=== PATIENT | female | born 1985 | race Caucasian/White ===

== ENCOUNTER 2021-03-27 16:41 | Emergency (ER) | payer BC, SELFPAY ==
[2021-03-27 16:47] VITALS: BP 132/94; PULSE 98; RESP 18; O2SAT 98
--- NOTE | 2021-03-27 17:04 | W.ED.GENAD ---
Discharge Plan Disposition Patient Disposition: HOME Condition: Improving Discharge Details Clinical Impression: Cellulitis of face Primary Care Provider: Grace Ho ED Provider: Marco Antonio Dasilva Home Meds and New Rx's Prescriptions: New amoxicillin-pot clavulanate 875-125 mg tablet 1 tab PO BID 10 Days Qty: 20 RF: 0 Continued spironolactone 100 mg tablet 100 mg PO BID RF: 0 clindamycin-benzoyl peroxide 1-5 % gel 1 applic TOPICAL DAILY RF: 0 liothyronine 5 mcg tablet 5 mcg PO DAILY RF: 0 hydroxyzine HCl 25 mg tablet 100 mg PO QHS RF: 0 zolpidem [Ambien] 5 mg tablet 5 mg PO QHS PRNRF: 0 albuterol sulfate [ProAir HFA] 90 mcg/actuation HFA aerosol inhaler 1 puff INHALATION PRN PRNRF: 0 sertraline 50 mg tablet 50 mg PO DAILY RF: 0 phentermine 37.5 mg capsule 37.5 mg PO DAILY RF: 0 bupropion HCl 300 mg tablet extended release 24 hr 300 mg PO DAILY RF: 0 Discontinued minocycline 100 mg capsule 100 mg PO DAILY PRNRF: 0 Discharge Instructions Instructions: Cellulitis (ED) Additional Instructions: Pap stop your current antibiotics. Begin Augmentin as prescribed twice daily. Take a [id number] probiotic once daily in the middle of the day while on this medication. Please follow-up with Dr. Rai in clinic for recheck if not improving in 5 to 7 days time. Return to the ER for any acute concerns. Medical Decision Making 35-year-old female who has intermittent acne that has recently flared up. She was placed on minocycline and now has trialed 2 to 3 days of doxycycline with minimal to no improvement. She does appear to have cellulitis and developing area of induration of the left lower face. Discussed with her options for treatment. We will place her on Augmentin for 10 days. She will take a probiotic with this. She will follow with primary care for recheck. She is stable for discharge home. HPI General Mode of arrival: ambulatory. Date/Time Provider Initiated Documentation: 03/27/21 16:43. Limitations to Documentation: no limitations. Information obtained by: patient. History of Present Illness 35 year old F presents to the emergency department with the chief complaint of Skin infection on face, described as moderate and similar to prior episodes, Quality is described as dull and constant, and is localized to the face. Patient reports no radiation. Patient started experiencing this day(s) and it has been constant. No relieving factors improve symptom(s), No exacerbating factors reported . Patient notes no other symptoms.; denies fever/chills, headaches and loss of appetite. Patient did receive the following treatments prior to arrival, other (Doxycycline) Related Data Home Medications Medication Instructions Recorded Confirmed albuterol sulfate [ProAir HFA] 1 puff INHALATION PRN PRN 03/27/21 03/27/21 amoxicillin-pot clavulanate 1 tab PO BID 10 Days #20 tab 03/27/21 bupropion HCl 300 mg PO DAILY 03/27/21 03/27/21 clindamycin-benzoyl peroxide 1 applic TOPICAL DAILY 03/27/21 03/27/21 hydroxyzine HCl 100 mg PO QHS 03/27/21 03/27/21 liothyronine 5 mcg PO DAILY 03/27/21 03/27/21 phentermine 37.5 mg PO DAILY 03/27/21 03/27/21 sertraline 50 mg PO DAILY 03/27/21 03/27/21 spironolactone 100 mg PO BID 03/27/21 03/27/21 zolpidem [Ambien] 5 mg PO QHS PRN 03/27/21 03/27/21 Previous Rx's Medication Instructions Recorded amoxicillin-pot clavulanate 1 tab PO BID 10 Days #20 tab 03/27/21 Allergies Allergy/AdvReac Type Severity Reaction Status Date / Time apixaban [From Eliquis] AdvReac Severe Other (See Unverified 03/27/21 16:52 Comment) General Stated Complaint: FacialProb BRADEN: 4 Review of Systems Narrative: No fever or vomiting. She is otherwise been well. Took a course of minocycline, now on doxycycline. COUNT INCLUDES THE [facility] Social History Smoking risk assessment performed?: No Exam Narrative Exam Narrative: GEN: awake, alert, oriented 3. Pleasant, well groomed, interactive. HEAD: Normocephalic, atraumatic ENT: Mucous membranes moist, oropharynx unremarkable, External ear exam unremarkable. Left lower face with areas of induration, mild erythema, tender to touch. No point fluctuance. EYES: PERRL, EOMI NECK: Full ROM, no AB, no menigismus CHEST/RESP: Nontender, clear to auscultation bilateral, no wheeze/rhonchi/rales CARDIOVASCULAR: RRR, no murmur, rub derek. 2+ Rad pulse bilateral Neuro: Grossly normal neurologic exam, conversant, interactive. Psych: Speech fluent, thoughts congruent, affect normal Course Vital Signs Vital signs: Vital Signs Pulse 98 H 03/27/21 16:47 Respiratory Rate 18 03/27/21 16:47 Blood Pressure 132/94 H 03/27/21 16:47 Pulse Oximetry 98 03/27/21 16:47 Pulse 98 H 03/27/21 16:47 Respiratory Rate 18 03/27/21 16:47 Blood Pressure 132/94 H 03/27/21 16:47 Blood Pressure Position Sitting 03/27/21 16:47 Pulse Oximetry 98 03/27/21 16:47 Oxygen Delivery Method Room Air 03/27/21 16:47 Oxygen Flow Rate 0 03/27/21 16:47 Pain Level 5 03/27/21 16:47
[2021-03-27] MEDS: Amox. 875/Clav. 125, 2 TABS/BTL 1 TAB PO (17:23)
== END 2021-03-27 17:22 | disposition home or self-care (01) ==
PROVIDERS: Emergency Provider Emergency Medicine; PCP Family Medicine
DX: L03.211 Cellulitis of face (principal); L70.9 Acne, unspecified
CPT/HCPCS: 99283